=== PATIENT | female | born 1975 | race Caucasian/White ===

== ENCOUNTER 2022-12-07 16:02 | Emergency (ER) | payer OTHER, SELFPAY ==
[2022-12-07 16:04] VITALS: BP 202/92; PULSE 104; RESP 18; TEMP 36.3; O2SAT 96; BMI 46.2
--- NOTE | 2022-12-07 16:27 | EDS_ITS ---
HPI <MARYANNE Damon - Last Filed: 12/07/22 18:16> History of Present Illness Chief Complaint: Laceration Narrative Narrative: Patient is a 47-year-old female with type 2 diabetes who presents to the emergency department with right foot injury and laceration. Patient states that she was using a metal sliding door. Patient got her right foot caught, patient has a large laceration to the dorsal aspect of the foot on the lateral aspect. Patient was ambulatory however there was significant mount of blood. She was seen by EMS who dressed it and put a tourniquet on her ankle. Patient denies any other injury. [facility] <MARYANNE Damon - Last Filed: 12/07/22 18:16> [facility] Medical History (Updated 12/07/22 @ 18:16 by MARYANNE Damon) Diabetes HTN (hypertension) Home Medications amlodipine 5 mg tablet PO 90 days ##90 01/25/18 [History Last Taken Unknown] levofloxacin 500 mg tablet (Levaquin) 500 mg PO QDAY #5 tabs 01/25/18 [Rx Last Taken Unknown] metformin 500 mg tablet,extended release 24 hr PO 90 days ##90 01/25/18 [History Last Taken Unknown] metoprolol succinate 25 mg tablet,extended release 24 hr PO 90 days ##90 01/25/18 [History Last Taken Unknown] simvastatin 10 mg tablet PO 90 days ##90 01/25/18 [History Last Taken Unknown] valsartan 80 mg tablet PO 90 days ##90 01/25/18 [History Last Taken Unknown] venlafaxine 75 mg tablet,extended release 24 hr PO 90 days ##90 01/25/18 [History Last Taken Unknown] Allergy/AdvReac Type Severity Reaction Status Date / Time Penicillins Allergy Unknown Verified 01/25/18 10:37 Sulfa (Sulfonamide Allergy Unknown Verified 01/25/18 10:37 Antibiotics) Social History (Updated 01/25/18 @ 11:03 by Kati DOBSON, PA) Smoking Status: Current every day smoker tobacco type: cigarettes alcohol intake: current alcohol intake frequency: a few times a week ROS <MARYANNE Damon - Last Filed: 12/07/22 18:16> ROS ED ROS Narrative Constitutional: Negative for fever, chills, weight loss, weakness Eyes: Negative for vision loss, vision change, double vision ENT: Negative for any sore throat, ear pain, congestion Cardiovascular: Negative for any chest pain, tightness, palpitations Respiratory: Negative for any cough, sputum production, hemoptysis, dyspnea, dyspnea on exertion, orthopnea Gastrointestinal: Negative for any abdominal pain, nausea, vomiting, diarrhea, constipation, blood in stool, blood in vomit : Negative for any urinary frequency, dysuria, retention, blood in urine Muscle skeletal: Negative for any muscle joint pain, stiffness, myalgias, arthralgias, neck pain, back pain. Positive right foot pain Neurological: Negative for any headache, syncope, numbness or tingling, dizziness Skin: Negative for any rashes, lumps, itching, abrasions. Positive for large laceration to the top of the foot Psychiatric: Negative for any depression, anxiety, stress, suicidal ideation, homicidal ideation Hematologic: Negative for any easy bruising, excessive bruising, easy bleeding Allergies: Negative for any eczema, hives, rash EXAM <MARYANNE Damon - Last Filed: 12/07/22 18:16> Physical Exam Narrative Exam Narrative: Vital signs reviewed. HEET: Head normocephalic atraumatic, TMs clear bilaterally. Posterior pharynx is clear, moist mucous membranes. Nares clear bilaterally. Neck: Supple with no lymphadenopathy or tenderness. No signs of meningismus, negative jolt sign. Cardiac: Regular rate and rhythm no murmurs gallops or rubs, equal peripheral pulses bilaterally. Respiratory: Lungs clear to auscultation bilaterally. No chest tenderness. Abdomen: Soft, nontender, nondistended. No abdominal bruit or pulsatile masses. No hepatosplenomegaly Extremities: No peripheral edema, no signs of gross trauma or deformity. Active full range of motion of all extremities. Large linear vertical laceration roughly around 8 cm in length. There is fatty tissue exposed. Patient has full range of motion of the foot. This is all on the dorsal aspect predominately laterally. +2 pedal pulse. Full range of motion of the foot and toes, no concern for tendon involvement Neuro: Cranial nerves II through XII intact, no focal neurological deficits. Skin: Clean dry and intact with no rash, purpura, petechiae, vesicles or pustules. Large laceration Backs/flank: No CVA tenderness, no midline spinal tenderness, no deformity. Psych: Normal mood and affect. No SI, HI or acute psychosis. Const Vital Signs: 12/07/22 16:04 12/07/22 17:37 Temperature 97.3 F L Temperature Source Temporal Pulse Rate 104 H 98 Respiratory Rate 18 18 Blood Pressure 202/92 H 178/87 H Blood Pressure Mean 128 117 Pulse Ox 96 97 Oxygen Delivery Method Room Air Room Air Positive well nourished and well developed General Appearance ED: well developed <Dr. Carlo Morse MD - Last Filed: 12/08/22 15:06> Physical Exam Const Vital Signs: 12/07/22 16:04 12/07/22 17:37 Temperature 97.3 F L Temperature Source Temporal Pulse Rate 104 H 98 Respiratory Rate 18 18 Blood Pressure 202/92 H 178/87 H Blood Pressure Mean 128 117 Pulse Ox 96 97 Oxygen Delivery Method Room Air Room Air MDM <MARYANNE Damon - Last Filed: 12/07/22 18:16> MDM Radiography Diagnostic Testing: Clinical Impression(s) from Imaging Studies Foot X-Ray 12/07/22 16:47 IMPRESSION: Soft tissue laceration without evidence for acute fracture or radiopaque foreign body in soft tissues Electronically Signed: Wild Jang MD at 17:08 EDT , Treatment and Re-Evaluation :: Patient appears generally well, patient appears nontoxic, vital signs are stable. Patient presents the emergency department with a 8 to 9 cm laceration to the right foot. The foot did receive an x-ray, this was unremarked for any acute osseous abnormality. There is no evidence of any tendon involvement as the patient full range of motion of the foot, toes. The wound was irrigated copiously, let gel was applied. I was able anesthetize the area with lidocaine with epinephrine. I did place 15 simple ruptured sutures of 4-0 Ethilon, edges approximated nicely, patient tolerated well. Sterile gloves, sterile drapes were used. Patient was given a postop shoe, as well as wound care instructions and bacitracin dressing. She will use her crutches at home to decrease weight on the right foot for 5 to 7 days. She will have these removed in 12 to 14 days. She is happy with the plan of care, given wound care instructions and return for any worsening redness, signs or symptoms of infection. <Dr. Carlo Morse MD - Last Filed: 12/08/22 15:06> [facility] Narrative Medical decision making narrative: I have personally performed a face to face assessment of the patient and have reviewed the CURRY Note. I performed a substantive portion of the visit including all aspects of the following. My aclala findings include: History: Patient accidentally cut the top of her right foot opening a screen door at home. No other injury. She did not fall to the ground. Tetanus is unknown. She had initial bleeding but that was stopped. EMS put a tourniquet on it but its not bleeding when we take that off. She is not on any blood thinners. Exam: Patient awake alert no acute distress. There is no bony tenderness. She did not actually fall. There is a laceration approximately 8 cm in length in the dorsal lateral aspect of her right foot. Relatively clean and linear. No active bleeding at this time. Distally neurovascularly intact. Medical Decision Making: Patient will have LET applied to the wound for initial anesthesia. We will then locally anesthetized and sutured this. Radiography Diagnostic Testing: Clinical Impression(s) from Imaging Studies Foot X-Ray 12/07/22 16:47 IMPRESSION: Soft tissue laceration without evidence for acute fracture or radiopaque foreign body in soft tissues Electronically Signed: Wild Jang MD at 17:08 EDT Reading Location ID and State: [address] [place] [address] , Service support , Procedures <MARYANNE Damon - Last Filed: 12/07/22 18:16> Lacerations Right foot laceration: Length: 8 cm Depth: Skin Shape: Linear Prep: Sterile Conditions and Shure-Clens Laceration repair: Irrigated and Lidocaine with epi Irrigated (ml): 200 Number of Sutures/[place]: 15 Suture Information: Simple and 4-0 Comment: Sterile gloves, sterile drapes were used. Patient tolerated well. Discharge Plan Triage Chief Complaint: Laceration ED Midlevel Provider: Chau Kamara ED Provider: Carlo Morse Dx/Rx/DC Orders Clinical Impression: Foot laceration Instructions: ED Laceration: All Closures, ED Laceration Extremity, ED Laceration Minimize Scars Prescriptions: No Action simvastatin 10 mg tablet PO 90 Days Qty: 90 Patient Comments: valsartan 80 mg tablet PO 90 Days Qty: 90 Patient Comments: amlodipine 5 mg tablet PO 90 Days Qty: 90 Patient Comments: metoprolol succinate 25 mg tablet extended release 24 hr PO 90 Days Qty: 90 Patient Comments: metformin 500 mg tablet extended release 24 hr PO 90 Days Qty: 90 Patient Comments: venlafaxine 75 mg tablet extended release 24hr PO 90 Days Qty: 90 Patient Comments: levofloxacin [Levaquin] 500 mg tablet 500 mg PO QDAY Qty: 5 0RF Primary Care Provider: Duane Rubalcava NP Referrals: Duane Rubalcava NP, [employer] [Primary Care Provider] - Activity Restrictions/Additional Instructions: You will have these sutures removed in 12 to 14 days. Use the postop shoe, do not go in any pools, hot tubs, any big bodies of water. You may shower. Make sure is clean and dry. Return for any redness or signs or symptoms of infection Disposition Disposition: Home, Self Care Discharge Date/Time: 12/07/22 18:30
[2022-12-07] MEDS: Lidocaine/Epi/Tetracaine 50 ML 1 APPLIC TOPICAL (16:30)
[2022-12-07] MEDS: Lidocaine 1% /Epi 1:100 (20ml) 20 ML Vial 8 ML INFILT (16:43)
--- NOTE | 2022-12-07 16:47 | RAD_ITS ---
STUDY: X-RAY - RIGHT FOOT CLINICAL: Female, 47 years old. laceration TECHNIQUE: 3 view(s) of the foot. COMPARISON: None. FINDINGS: Normal talus, calcaneus, and tarsal bones. Normal visualized subtalar, talonavicular, calcaneocuboid, tarsal and tarsometatarsal articulations. Normal metatarsi. Normal metatarsophalangeal joint of the great toe. Normal tibial and fibular sesamoid bones. Normal interphalangeal joint of the great toe. Normal phalanges of the great toe. Normal second through fifth metatarsophalangeal joints. Normal interphalangeal joints and phalanges of the lesser toes. Soft tissue laceration lateral to the fifth metatarsal without radiopaque foreign body in the soft tissues. RAD/Foot min 3 Views IMPRESSION: Soft tissue laceration without evidence for acute fracture or radiopaque foreign body in soft tissues Electronically Signed: Wild Jang MD at 17:08 EDT ,
[2022-12-07] MEDS: Diphth,Pertuss(Acell),Tet Vac 0.5 ML Vial IM (16:52)
[2022-12-07 17:37] VITALS: BP 178/87; PULSE 98; RESP 18; O2SAT 97
== END 2022-12-07 18:30 | disposition home or self-care (01) ==
PROVIDERS: Emergency Provider Emergency Medicine; PCP Nurse Practitioner Family; Visit Provider Emergency Medicine
DX: S91.311A Laceration without foreign body, right foot, initial encounter (principal); E11.9 Type 2 diabetes mellitus without complications; I10 Essential (primary) hypertension; F17.210 Nicotine dependence, cigarettes, uncomplicated; W23.0XXA Caught, crushed, jammed, or pinched between moving objects, initial encounter; Z23 Encounter for immunization
CPT/HCPCS: 12004; 73630; 90471; 90715; 99283

== ENCOUNTER 2022-12-29 21:35 | Emergency (ER) | payer OTHER, SELFPAY ==
[2022-12-29 21:39] VITALS: BP 134/107; PULSE 105; RESP 18; TEMP 36.2; O2SAT 94
[2022-12-29 21:52] VITALS: BMI 46.3
--- NOTE | 2022-12-29 22:12 | EDS_ITS ---
HPI History of Present Illness HPI Narrative: 47-year-old female history of diabetes, hypertension on aspirin but no other blood thinners. Slipped and fell a week ago when she stepped on a bag that was on the floor and landed on her left knee on carpeted floor. Since that time she has had bruising and swelling. She has not had it evaluated before tonight. She had no prior knee problems and has never had left knee surgery. She denies any hip or ankle pain. She denies any other complaints. She did not hit her head. She denies other injuries. She is on no blood thinners besides aspirin. Chief Complaint: Lower Extremity Injury Informant: patient Occured/Mechanism Mechanism/Context: Yes injury and Yes blunt trauma Onset/Context/Timing Onset: Days Context: Sudden Onset Timing: Continuous Quality of Pain: Dull and Aching Current Severity: Moderate Maximum Severity: Moderate Associated Symptoms Associated Symptoms: Negative for Parasthesia, Weakness or Loss of Funtion Narrative Narrative: 47-year-old diabetic female slipped and fell injuring her left knee 1 week ago. Has had more discomfort, swelling and bruising. Came in to have it evaluated. Prior similar symptoms: No Recent Illness/Hospitalization: No PFSH PFS Medical History Diabetes HTN (hypertension) Home Medications metformin 500 mg tablet,extended release 24 hr 500 mg PO BID 90 days ##90 01/25/18 [History Last Taken Unknown] metoprolol succinate 25 mg tablet,extended release 24 hr 25 mg PO DAILY 90 days ##90 01/25/18 [History Last Taken Unknown] valsartan 80 mg tablet 160 mg PO DAILY 90 days ##90 01/25/18 [History Last Taken Unknown] cephalexin 500 mg capsule 500 mg PO Q6 7 days #28 CAPSULES 12/29/22 [Rx Last Taken Unknown] omeprazole 40 mg capsule,delayed release 40 mg PO DAILY 12/29/22 [History Last Taken Unknown] Allergy/AdvReac Type Severity Reaction Status Date / Time Penicillins Allergy Swelling Verified 12/29/22 21:38 Sulfa (Sulfonamide Allergy Swelling Verified 12/29/22 21:38 Antibiotics) Social History Smoking Status: Current every day smoker tobacco type: cigarettes alcohol intake: current alcohol intake frequency: a few times a week ROS ROS ED ROS Narrative Denies recent illness. No fever. Review of Systems ROS Unobtainable: Denies due to encephalopathy Constitutional Constitutional ED: Denies chills or fever(s) Eyes Eyes: Denies blurry vision ENT ENT ED: Denies ear pain Cardiovascular Cardiovascular: Denies chest pain Respiratory/Chest Respiratory/Chest: Denies cough or dyspnea Gastrointestinal Gastrointestinal: Denies abdominal pain Genitourinary Genitourinary ED: Denies dysuria or hematuria Musculoskeletal Musculoskeletal: Denies arthralgias Integumentary Denies abscess Neurologic Neurologic: Denies headache(s) Psychiatric Psychiatric: Denies anxiety Endocrine Endocrinology: Denies polydipsia Hematologic/Lymphatic Hematologic/Lymphatic: Denies easy bleeding Allergic/Immunologic Allergic/Immunologic ED: Denies mouth swelling or tongue swelling EXAM Physical Exam Narrative Exam Narrative: 27-year-old female no acute distress. Vital signs stable afebrile. HEENT exam unremarkable atraumatic nontender. C-spine and neck nontender. Back and spine nontender. Lungs clear. Heart regular rhythm rate about 100 no murmur. Chest wall nontender. Ribs nontender. Abdomen soft nontender. Girdle intact. Normal flexion extension of both hips. No shortening or rotation. Right lower extremity unremarkable. Left lower extremity the knee is tender, swollen with bruising on the anterior and posterior aspect around the knee proximal tib-fib and lower femur. No gross bony deformity. She is able to do flexion extension of the knee. No obvious cellulitis. No laceration or significant injury to the soft tissue other than contusion and bruising. Left lower leg, ankle and foot are nontender neurovascular intact. Normal dorsi plantarflexion. Normal touch sensation. Normal DP pulse. Neurologic exam normal. Const Vital Signs: 12/29/22 21:39 Temperature 97.1 F L Temperature Source Temporal Pulse Rate 105 H Respiratory Rate 18 Blood Pressure 134/107 H Blood Pressure Mean 116 Pulse Ox 94 Oxygen Delivery Method Room Air Positive well nourished and well developed; Negative for cachectic, contractures or unkempt General Appearance ED: well developed and NAD; Negative for unkempt, cachectic or contractures Nutritional Appearance: Negative for cachectic HEENT Reports moist mucous membranes normocephalic and atraumatic; Negative for trauma or tenderness Eyes PERRL General Eye ED: Negative for other Neck full ROM and supple Thyroid: Negative for tender Lymph Lymphatic: Negative for other Chest Wall inspection of chest normal and palpation of chest normal Resp normal respiratory effort, no retractions and clear to auscultation bilaterally Effort and Inspection: Negative for pain with movement Auscultation: Negative for rales, rhonchi, wheezes or diminished lung sounds Percussion: Negative for other Cardio regular rate, regular rhythm, S1 normal heart sound, S2 normal heart sound and no murmurs Rate: Negative for bradycardia or tachycardic Rhythm: Negative for abnormal rhythm Bruits: Negative for other GI non-tender, non-distended and no masses Inspection: Negative for abdominal distention Auscultation: normoactive bowel sounds Palpation: soft; Negative for tender or guarding Bladder / Kidney Exam: No other Back/Spine no CVA tenderness General Back: Negative for CVA tenderness Cervical Spine: Negative for cervical spine tenderness Thoracic Spine / Upper Back: Negative for thoracic spinal tenderness Lumbar Spine / Lower Back: Negative for lumbar spinal tenderness Extremity Negative for normal to inspection Extremity Narrative: Left knee tender, swollen significant bruising both anteriorly and posteriorly. Effusion but able to do flexion extension somewhat limited due to the swelling. No gross bony deformity. Skin intact. General Extremety ED: Yes edema; Negative for cyanosis General Extremity: edema; Negative for cyanosis Neuro oriented x3, CN's II-XII intact bilaterally, moves all extremities and no sensory deficits noted Sensorium / Orientation: alert, oriented to person, oriented to place and oriented to time; Negative for orientation impaired, confused, lethargic or stuporous Motor Exam: strength 5/5 throughout Psych mental status grossly normal Appearance: Negative for unkempt Speech: No other Mood & Affect: Negative for anxious Skin no wounds Skin Narrative: Bruising, contusion, swelling of the left knee. Skin intact. Lesions: no lesions Rashes: no rashes Trauma: Negative for abrasion or laceration MDM MDM MDM Narrative Medical decision making narrative: 47-year-old diabetic fell about a week ago injuring her left knee. Has significant bruising and soft tissue swelling. X-ray being obtained. She is not on any blood thinners besides aspirin. She has had no nosebleeds, hematuria or melena I do not think she needs any lab work. Repeat exam patient doing well. We went over x-ray results. Primarily I think this is soft tissue swelling, bursitis and bruising. Due to her being diabetic is warm to touch and the top of her knee I am in a started on Keflex in case she has an early cellulitis from trauma to the soft tissue. She will follow-up with her doctor if she is not improving or return if worse. Ice and elevate. Motrin Tylenol for pain and swelling. History & Record Review Discussion w/independent historian: Patient Radiography Diagnostic Testing: Clinical Impression(s) from Imaging Studies Knee X-Ray 12/29/22 22:35 IMPRESSION: Soft tissue swelling. Consider prepatellar bursitis or hematoma. There is no fracture or dislocation. Preservation of the joint spaces. Electronically Signed: Stefano Hayes MD at 22:52 EDT , Discharge Plan Triage Chief Complaint: Lower Extremity Injury ED Provider: Jg Ordonez Dx/Rx/DC Orders Clinical Impression: Bursitis, prepatellar, Contusion of knee, Fall Instructions: ED Contusion, Lower Extremity Prescriptions: New cephalexin 500 mg capsule 500 mg PO Q6 7 Days Qty: 28 0RF No Action valsartan 80 mg tablet 160 mg PO DAILY 90 Days Qty: 90 Patient Comments: metoprolol succinate 25 mg tablet extended release 24 hr 25 mg PO DAILY 90 Days Qty: 90 Patient Comments: metformin 500 mg tablet extended release 24 hr 500 mg PO BID 90 Days Qty: 90 Patient Comments: omeprazole 40 mg capsule,delayed release(DR/EC) 40 mg PO DAILY Primary Care Provider: Duane Rubalcava MEDICAL SUPPLY TECHNICIAN Referrals: Duane Rubalcava MEDICAL SUPPLY TECHNICIAN, [employer] TECHNICIAN[facility] [Primary Care Provider] - 10-14 Days if not better Activity Restrictions/Additional Instructions: Ice and elevate your knee to decrease pain and swelling. Motrin and Tylenol for pain and swelling. This appears to be due to the trauma with soft tissue swelling, bruising and bursitis from trauma to the bursa sac by your knee. In case there is an early soft tissue infection called cellulitis I am starting you on an antibiotic called Keflex 1 pill 4 times a day for a week. This should start improving. If it is getting worse or not improving follow-up with your doctor return to the emergency department. Disposition Disposition: Home, Self Care
--- NOTE | 2022-12-29 22:35 | RAD_ITS ---
INDICATION: fall EXAMINATION/TECHNIQUE: X-RAY - LEFT XR Knee Complete 4 Views or More 4 VIEWS COMPARISON: None. FINDINGS: Minimal patellofemoral osteophyte formation. No significant medial or lateral tibiofemoral joint compartmental narrowing. No obvious osteochondral injury is present. There is no definitive knee effusion. Soft tissue swelling is seen anterior to the patellar tendon. No suprapatellar effusion. No fracture. RAD/Knee 4 or More Views IMPRESSION: Soft tissue swelling. Consider prepatellar bursitis or hematoma. There is no fracture or dislocation. Preservation of the joint spaces. Electronically Signed: Stefano Hayes MD at 22:52 EDT ,
[2022-12-29] MEDS: Cephalexin 250 MG Capsule 500 MG PO (23:10)
== END 2022-12-29 23:11 | disposition home or self-care (01) ==
PROVIDERS: Emergency Provider Emergency Medicine; PCP Nurse Practitioner Family; Visit Provider Emergency Medicine
DX: S80.00XA Contusion of unspecified knee, initial encounter (principal); E11.9 Type 2 diabetes mellitus without complications; I10 Essential (primary) hypertension; F17.210 Nicotine dependence, cigarettes, uncomplicated; Z79.82 Long term (current) use of aspirin; W01.0XXA Fall on same level from slipping, tripping and stumbling without subsequent striking against object, initial encounter; M70.42 Prepatellar bursitis, left knee
CPT/HCPCS: 73564; 99283